=== PATIENT | male | born 2000 | race Caucasian/White ===

== ENCOUNTER 2020-12-02 12:32 | Emergency (ER) | payer SELFPAY ==
[~2020-12-02] VITALS: Ht 175.3 cm; Wt 93.0 kg
[~2020-12-02 12:32] MED LIST: ASPIR 8181 MG PO; CLARITIN10 M2 PO; PERCOCET 5-3251 EACH PO; PHENERGAN 12.12.5 M1 PO; STOOL SOFTENER250 MG PO; ZYRTEC10 M3 PO
== END 2020-12-02 15:25 | disposition home or self-care (01) ==
LOC: ER1 12:32
DX: U07.1 COVID-19 (principal); J02.9 Acute pharyngitis, unspecified; Z23 Encounter for immunization; Z88.8 Allergy status to other drugs, medicaments and biological substances; Z79.899 Other long term (current) drug therapy
CPT/HCPCS: 87081; 87880; 99284; M0243